=== PATIENT | male | born 1960 | race Caucasian/White ===

== ENCOUNTER 2017-03-03 15:51 | Emergency (ER) | payer MEDICARE, MEDICAID ==
[2017-03-03 17:23] VITALS: BP 157/66
--- NOTE | 2017-03-03 17:45 | UC ---
General HPI - HPI Summary HPI Summary: Here with caregiver from [facility] rash that started 2 nights ago Gtube opened and stomach contents spilled between his back and shirt rash is flat and has some drainage pt doesn't seem to be in pain rash was cleansed and cold compress -used A&D ointment on the rash rash today is raised and has some drainage staff reports no fever - History of Current Complaint Chief Complaint: UCRash Stated Complaint: RASH Time Seen by Provider: 03/03/17 17:10 Hx Obtained From: Patient, Family/Hris Coordinator - Allergy/Home Medications Allergies/Adverse Reactions: Allergies Allergy/AdvReac Type Severity Reaction Status Date / Time Diazepam [From Valium] Allergy Unknown Unknown Verified 12/13/15 09:55 Reaction Details Penicillins Allergy Unknown Unknown Verified 12/13/15 09:55 Reaction Details PMH/Surg Hx/FS Hx/Imm Hx Previously Healthy: Yes Respiratory History Of: Reports: Pneumonia - Surgical History Surgical History: Yes Surgery Procedure, Year, and Place: [employer] shunt- non- functioning presently, subdural hematomal, dental extraction, feeding tube - Family History Known Family History: Positive: Unknown - Social History Occupation: Disabled Lives: Assisted Living Alcohol Use: None Substance Use Type: None Smoking Status (MU): Never Smoked Tobacco - Immunization History Most Recent Influenza Vaccination: [id number] Review of Systems Constitutional: Negative Skin: Rash Eyes: Negative ENT: Negative Respiratory: Negative Cardiovascular: Negative Gastrointestinal: Negative Genitourinary: Negative Motor: Negative Neurovascular: Negative Musculoskeletal: Negative Neurological: Negative Psychological: Negative All Other Systems Reviewed And Are Negative: Yes Physical Exam Triage Information Reviewed: Yes Completion Of Physical Exam Limited Due To: Altered Mental Status - normal for patient Vital Signs: Initial Vital Signs Temp 97.1 F 03/03/17 17:14 Pulse 66 03/03/17 17:14 Resp 16 03/03/17 17:14 BP 157/66 03/03/17 17:14 Pulse Ox 96 03/03/17 17:14 Vital Signs Reviewed: Yes Eyes: Positive: Conjunctiva Clear ENT: Positive: Pharynx normal, TMs normal, Other: - large head Neck: Positive: No Lymphadenopathy Respiratory: Positive: Lungs clear, Normal breath sounds, No respiratory distress, No accessory muscle use Cardiovascular: Positive: RRR, No Murmur, Pulses Normal Abdomen Description: Positive: Nontender, Soft, Other: - g-tube in place Bowel Sounds: Positive: Present Musculoskeletal: Positive: Other: - hands are contracted BLE are in braces Neurological: Positive: Alert Psychological: Positive: Consolable Skin: Positive: Other - 4inches x 2.5 in Course/Dx - Course Course Of Treatment: exam completed. will treat for chemical burn with silvadene. no indication for oral antibiotics at this time - Differential Dx - Multi-Symptom Differential Diagnoses: Other - chemical burn Provider Diagnoses: chemical burn upper back, elevated blood pressure Discharge - Discharge Plan Condition: Stable Disposition: HOME Prescriptions: Silver Sulfadiazine 1%* [SILVadine 1%*] 1 applic TOPICAL BID #1 tube Patient Education Materials: Chemical Skin Burn (ED) Referrals: Delroy Scott MD [Primary Care Provider] - Additional Instructions: Please keep burn clean and dry apply silvadene and apply sterile dressing twice a day Increase fluids and rest Please review your discharge instructions. If your symptoms do not improve please call your primary care provider or return to urgent care. Your blood pressure is elevated. Please contact your primary care provider within 1 day -4 weeks for further evaluation
[2017-03-03] MEDS ORDERED: Silver Sulfadiazine 1%* 20 GM TOPICAL ONE ×2 (17:46→18:00)
== END 2017-03-03 18:25 | disposition home or self-care (01) ==
LOC: UCCORT 15:51
DX: T65.891A Toxic effect of other specified substances, accidental (unintentional), initial encounter (principal); T21.43XA Corrosion of unspecified degree of upper back, initial encounter; Y93.9 Activity, unspecified; Y99.9 Unspecified external cause status; R03.0 Elevated blood-pressure reading, without diagnosis of hypertension; Z93.1 Gastrostomy status; Z98.2 Presence of cerebrospinal fluid drainage device
CPT/HCPCS: 99212; A9270-GY; G0463

== ENCOUNTER 2018-01-16 17:25 | Emergency (ER) | payer MEDICARE, MEDICAID ==
[2018-01-16 18:23] VITALS: BP 148/80
--- NOTE | 2018-01-16 18:37 | UC ---
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 he has seemed comfortable and not grunting at all. recently had abx for aspiration pneumonia./ Kareem denies any noted cough. He is here w/ his . - History of Current Complaint Chief Complaint: UCGeneralIllness Stated Complaint: ORAL COMPLAINT Time Seen by Provider: 01/16/18 18:15 Pain Intensity: 0 - Allergies/Home Medications Allergies/Adverse Reactions: Allergies Allergy/AdvReac Type Severity Reaction Status Date / Time MS Diazepam [From Valium] Allergy Unknown Unknown Verified 12/13/15 09:55 Reaction Details MS Penicillins [Penicillins] Allergy Unknown Unknown Verified 12/13/15 09:55 Reaction Details Home Medications: Home Medications Esomeprazole(NF) [Nexium(NF)] 40 mg PO DAILY 01/16/18 [History Confirmed ] Lactobacillus Acidophilu (GG)* [Culturelle*] 1 cap PO BID 01/16/18 [History Confirmed 01/16/18] Lisinopril TAB* [Prinivil TAB 10 MG*] 10 mg PO DAILY 01/16/18 [History Confirmed 01/16/18] Metoprolol Tartrate TAB* [Lopressor TAB*] 50 mg PO BID 01/16/18 [History Confirmed 01/16/18] Tobramycin 0.3% OPHTH.KURTIS* 1 drop BOTH EYES EVERY OTHER DAY 01/16/18 [History Confirmed 01/16/18] PMH/Surg Hx/FS Hx/Imm Hx Previously Healthy: No - [employer] shunt- non- functioning presently, subdural hematomal, dental extraction - Surgical History Surgical History: Yes Surgery Procedure, Year, and Place: [employer] shunt- non- functioning presently, subdural hematomal, dental extraction, feeding tube - Family History Known Family History: Positive: Unknown - pt non-verbal - Social History Alcohol Use: None Substance Use Type: None Smoking Status (MU): Never Smoked Tobacco - Immunization History Most Recent Influenza Vaccination: [id number] Review of Systems Constitutional: Negative Skin: Negative Eyes: Negative ENT: Other - white ocating on tongue Respiratory: Negative Cardiovascular: Negative Gastrointestinal: Negative Genitourinary: Negative Motor: Negative Neurovascular: Negative Musculoskeletal: Negative Neurological: Negative Psychological: Negative Is Patient Immunocompromised?: No All Other Systems Reviewed And Are Negative: Yes Physical Exam Triage Information Reviewed: Yes Completion Of Physical Exam Limited Due To: Other - non-verbal. peaceful. alert Appearance: No Pain Distress Vital Signs: Initial Vital Signs Temp 96.1 F 01/16/18 18:18 Pulse 66 01/16/18 18:18 Resp 18 01/16/18 18:18 BP 148/80 01/16/18 18:18 Pulse Ox 98 01/16/18 18:18 Vital Signs Reviewed: Yes Eye Exam: Normal ENT: Positive: Other - tongue with white coating, no visble oral lesions Respiratory: Positive: Lungs clear, Normal breath sounds, No respiratory distress, No accessory muscle use Cardiovascular: Positive: RRR, No Murmur Dental Complaint Course/Dx - Differential Dx/Diagnosis Differential Diagnosis/Dx: Other - thrush Provider Diagnoses: oral thrush Discharge - Discharge Plan Condition: Stable Disposition: HOME Prescriptions: Nystatin SUSPENSION ORAL SYR* 100,000 units PO QID 14 Days #[facility] [place] Patient Education Materials: Oral Candidiasis (ED) Referrals: Delroy Scott MD [Primary Care Provider] - 5 Days Additional Instructions: Apply nystatin with oral swab.
== END 2018-01-16 19:04 | disposition home or self-care (01) ==
LOC: UCCORT 17:25
DX: B37.0 Candidal stomatitis (principal); Z88.0 Allergy status to penicillin; Z88.8 Allergy status to other drugs, medicaments and biological substances; Z98.2 Presence of cerebrospinal fluid drainage device
CPT/HCPCS: 99212; G0463

== ENCOUNTER 2019-12-17 09:11 | Emergency (ER) | payer MEDICARE, MEDICAID ==
--- OUTSIDE RECORDS SUMMARY | 2019-12-17 10:54 | XMS REPORT | Continuity of Care Document ---
:1960 External Reference #:[id number] Author Name Jerrell Lozada M.D. (transmitted by agent of provider Deidre Velázquez) Address [address] [place] [id number] Care Team Providers Name Role Phone Delroy Scott MD - Family Medicine Care Team Information Manager Development [phone] Irma Parks M.D. - Internal Care Team Information Manager Development Medicine Ryan Adams MD - Internal Care Team Information Manager Development [phone] Medicine Problems Active Problems Provider Date Benign essential hypertension Toya Grier ANP Onset: 09/11/2011 Pure hypercholesterolemia Toya Grier ANP Onset: 09/11/2011 Gallstone Davie Field MD Onset: 10/17/2011 Degenerative joint disease involving multiple Tremaine Oliveros MD Onset: 2015 joints Congenital dislocation of hip Tremaine Oliveros MD Onset: 12/16/2015 History of subdural hematoma Tremaine Oliveros MD Onset: 12/16/2015 Note: craniotomy -> epilepsy Hydrocephalus Tremaine Oliveros MD Onset: 12/16/2015 Note: G-tube replaced 2014 Adult health examination Tremaine Oliveros MD Onset: 12/16/2015 Note: colo to proximal transverse 2014 Kidney stone Tremaine Oliveros MD Onset: 12/16/2015 Paralytic ileus Tremaine Oliveros MD Onset: 12/16/2015 Anemia of chronic disease Tremaine Oliveros MD Onset: 12/19/2015 Note: Dec 2015 ferritin 208 Gastrostomy present Yimi Blanco MD,FACS Onset: 02/26/2017 Preoperative cardiovascular Merritt Ndiaye M.D., Onset: 02/26/2018 examination FAC Electrocardiogram abnormal Merritt Ndiaye M.D., Onset: 02/26/2018 [facility] Gastroesophageal reflux disease Kurt Akins MD Onset: 02/17/2018 Dysphagia Kurt Akins MD Onset: 02/17/2018 Complication of gastrostomy Jerrell Lozada, Onset: 07/09/2018 [facility] Ureteric stone Wade Campbell M.D. Onset: 02/11/2019 Urinary tract infectious disease Wade Campbell M.D. Onset: 06/15/2019 Social History Type Date Description Comments Sex Unknown Tobacco Use Start: Unknown Never Smoked Cigarettes Smokeless Tobacco Never Used Smokeless Tobacco ETOH Use Never used alcohol Tobacco Use Start: Unknown Patient denies history of smoking Recreational Drug Use Never Used Drugs Smoking Status Reviewed: 09/14/19 Patient denies history of smoking Allergies, Adverse Reactions, Alerts Active Allergies Reaction Severity Comments Date Penicillin 08/30/2011 Diazepam 08/30/2011 Medications Active Medications SIG Qnty Indications Ordering Date Provider Carafate take 3 times a day ( 420ml Jimmy Douglass, 08/20/2019 1GM/10ML Per Note, bid) Suspension Nexium mix 1 packet with 60units Jimmy Douglass, 08/04/2019 20mg Packet 30cc water let sit 2m & stir before administering via g-tube twice daily; flush g-tube with 120ml before administration Amlodipine Besylate take 2 by J tube 90tabs Zelda, 02/26/2018 5mg every day Namita Young M.D., [facility] Acyclovir for topical use as Gino Montanez, 01/28/2018 5% Ointment directed prn [facility] Water Flush 50 ml H2o flush with Unknown prn meds Water Flush 30 ml H2o flush whe Unknown TF stopped and restarted if it does not coincide with the water flush scheduled for every 4 hours Tramadol HCL 1 tablet via G-tube Unknown 50mg every 24 hours as Tablets needed pain Acidophilus Take one capsule via Unknown Capsules G-tube two times daily Ursodiol 1 capsule twice a Unknown 250mg Tablets day via g-tube Guaifenesin ac as directed Unknown 100-10mg/5ML Syrup Aloe [place] Protective Apply two times Unknown daily as needed for Ointment incontinence Hydrocortisone Apply to minor skin Unknown 1% Cream rash 3 times daily as needed until clear Centrum Liquid 5 ML Take 5 ML Via G-Tube Unknown Daily With Meals Cephalexin give 5 ml bid via g Unknown 250mg/5ML tube Suspension Rec Reglan Solution 5MG/5 take 5 ml via g tube Unknown ML 3 times a day before meals Tobradex instill 2 drops into Unknown 0.3-0.1% both eyes every Suspension other day Tramadol 50 MG Tablet Take 1 tablet via g Unknown tube every 4 hours as needed for pain Baby Oil instill 3 drops both Unknown Oil ears 3 times weekly Friday, Friday, & Friday Water Flush 100 ml H2o flush Unknown ac/pc meds Prostat 30 ml q day with Unknown 50ml H2o flush ac/pc meds Water Flush 120 ml water flush Unknown every 4hours via tube Jevity 1.2 El 78 ml q 12 hrs via Unknown Liquid tube Tobramycin 2 gtts both eyes qod Unknown 0.3% Solution Fleet Enema prn Unknown 7-19GM/118ML Enema Metoprolol Tartrate 1 v ia J tube bid Unknown for BP <90/60 50mg Tablets Bisacodyl insert 1 per rectum Unknown 10mg as needed for Suppository constipation. Albuterol Sulfate nebulized every 4 Unknown hours as needed (2.5mg/3ML) 0.083% Nebulizer Acetaminophen 2 tabs via J tube q Unknown 325mg 4 h prn Lisinopril take 2 tabs via J Unknown 10mg Tablets tube daily Polyethylene Glycol 1 tablespoon via J Unknown tube daily 527gm Multivitamin & plus iron via j-tube Unknown Mineral Liquid Phenobarbital 20 ml vis j tube Unknown 20mg/5 ML bid Immunizations CPT Code Status Date Vaccine Lot # [id number] Given Unknown Influenza Virus Split Children 6-35 Mo Of Age Intramuscular Use 38905 Refused 09/13/2014 flu vaccination Vital Signs Date Vital Result Comment 09/14/2019 9:24am BP Systolic Sitting Left Arm 135 mmHg BP Diastolic Sitting Left Arm 74 mmHg Body Temperature 99.8 F Heart Rate 89 /min Respiratory Rate 20 /min O2 % BldC Oximetry 92 % Ra 08/03/2019 2:30pm BP Systolic Sitting Right Arm 126 mmHg BP Diastolic Sitting Right Arm 72 mmHg Body Temperature 97.0 F Heart Rate 69 /min Respiratory Rate 16 /min Height 64 inches 5'4" Weight 141.00 lb BMI (Body Mass Index) 24.2 kg/m2 BSA (Body Surface Area) 1.69 m2 [place] body weight in kilograms 59 kg O2 % BldC Oximetry 94 % Ra Results Test Acquired Date Facility Test Result H/L Range Note Aot Request 08/09/2019 [facility] Aot Request Test(s) added 1, [address] [place] [address] [phone] Tests to be added: TnI 1 ACUTE RESP FAILURE 2 Tests: TnI Instructions: Procedures Date Code Description Status 08/10/2019 94365 Change gastrostomy tube; percutaneous, without imaging Completed guide 08/09/2019 42770 Echocardiogram Complete Completed 08/08/2019 66528 EKG Interpretation And Report Only Completed 08/07/2019 53870 EKG Interpretation And Report Only Completed 06/15/2019 13019 Measurement Post Voiding Residual Urine By Completed Ultrasound,Non-Imaging Medical Devices Description No Information Available Encounters Type Date Location Provider Dx Diagnosis Office Visit 09/14/2019 Jimmy Jeff MD Z43.1 Encounter for attention 9:10a to gastrostomy R05 Cough R12 Heartburn Office Visit 08/03/2019 2:20p Jimmy Jeff MD R05 Cough R12 Heartburn Z43.1 Encounter for attention to gastrostomy Office Visit 06/15/2019 10:30a Urology Wade Campbell, N39.0 Urinary tract M.DShukri infection, site not specified N13.2 Hydronephrosis with renal and ureteral calculous obstruction Assessments Date Code Description Provider 11/02/2019 J18.9 Pneumonia, unspecified organism Ghazala Torres M.D. 11/02/2019 K94.23 Gastrostomy malfunction Ghazala Torres M.D. 11/02/2019 R65.20 Severe sepsis without septic shock Ghazala Torres M.D. 11/02/2019 N39.0 Urinary tract infection, site not Ghazala Torres M.D. specified 11/01/2019 J18.9 Pneumonia, unspecified organism Ghazala Torres M.D. 11/01/2019 K94.23 Gastrostomy malfunction Ghazala Torres M.D. 11/01/2019 R65.20 Severe sepsis without septic shock Ghazala Torres M.D. 11/01/2019 N39.0 Urinary tract infection, site not Ghazala Torres M.D. specified 10/31/2019 J18.9 Pneumonia, unspecified organism Ghazala Torres M.D. 10/31/2019 K94.23 Gastrostomy malfunction Ghazala Torres M.D. 10/31/2019 R65.20 Severe sepsis without septic shock Ghazala Torres M.D. 10/31/2019 N39.0 Urinary tract infection, site not Ghazala Torres M.D. specified 10/29/2019 J18.9 Pneumonia, unspecified organism Víctor Cazares MD 10/29/2019 R50.9 Fever, unspecified Víctor Cazares MD 10/29/2019 R00.0 Tachycardia, unspecified Víctor Cazares MD 10/29/2019 R09.02 Hypoxemia Víctor Cazares MD 09/14/2019 Z43.1 Encounter for attention to gastrostomy Jimmy Douglass MD 09/14/2019 R05 Cough Jimmy Douglass MD 09/14/2019 R12 Heartburn Jimmy Douglass MD 08/16/2019 J69.0 Pneumonitis due to inhalation of food and Irma Parks M.D. vomit 08/16/2019 J96.01 Acute respiratory failure with hypoxia Irma Parks M.D. 08/16/2019 R00.1 Bradycardia, unspecified Irma Parks M.D. 08/16/2019 K92.0 Hematemesis Irma Parks M.D. 08/15/2019 J69.0 Pneumonitis due to inhalation of food and Ghazala Torres M.D. vomit 08/15/2019 J96.01 Acute respiratory failure with hypoxia Ghazala Torres M.D. 08/15/2019 R00.1 Bradycardia, unspecified Ghazala Torres M.D. 08/15/2019 K92.0 Hematemesis Ghazala Torres M.D. 08/14/2019 J69.0 Pneumonitis due to inhalation of food and Ghazala Torres M.D. vomit 08/14/2019 J96.01 Acute respiratory failure with hypoxia Ghazala Torres M.D. 08/14/2019 R00.1 Bradycardia, unspecified Ghazala Torres M.D. 08/14/2019 K92.0 Hematemesis Ghazala Torres M.D. 08/13/2019 J96.01 Acute respiratory failure with hypoxia Dariel Arias MD 08/13/2019 J69.0 Pneumonitis due to inhalation of food and Ankush Gill M.D. vomit 08/13/2019 J69.0 Pneumonitis due to inhalation of food and Dariel Arias MD vomit 08/13/2019 J96.01 Acute respiratory failure with hypoxia Ankush Gill M.D. 08/13/2019 K92.0 Hematemesis Dariel Arias MD 08/13/2019 F72 Severe intellectual disabilities Dariel Arias MD 08/13/2019 R00.1 Bradycardia, unspecified Ankush Gill M.D. 08/13/2019 K92.0 Hematemesis Ankush Gill M.D. 08/12/2019 J96.01 Acute respiratory failure with hypoxia Dariel Arias MD 08/12/2019 J69.0 Pneumonitis due to inhalation of food and Ghazala Torres M.D. vomit 08/12/2019 J69.0 Pneumonitis due to inhalation of food and Dariel Arias MD vomit 08/12/2019 J96.01 Acute respiratory failure with hypoxia Ghazala Torres M.D. 08/12/2019 K92.0 Hematemesis Dariel Arias MD 08/12/2019 F72 Severe intellectual disabilities Dariel Arias MD 08/12/2019 R00.1 Bradycardia, unspecified Ghazala Torres M.D. 08/12/2019 K92.0 Hematemesis Ghazala Torres M.D. 08/11/2019 J69.0 Pneumonitis due to inhalation of food and Ghazala Torres M.D. vomit 08/11/2019 J96.01 Acute respiratory failure with hypoxia Dariel Arias MD 08/11/2019 J69.0 Pneumonitis due to inhalation of food and Dariel Arias MD vomit 08/11/2019 J96.01 Acute respiratory failure with hypoxia Ghazala Torres M.D. 08/11/2019 K92.0 Hematemesis Dariel Arias MD 08/11/2019 F72 Severe intellectual disabilities Dariel Arias MD 08/11/2019 R00.1 Bradycardia, unspecified Ghazala Torres M.D. 08/11/2019 K92.0 Hematemesis Ghazala Torres M.D. 08/10/2019 K94.23 Gastrostomy malfunction Yimi Blanco MD,[facility] 08/10/2019 J69.0 Pneumonitis due to inhalation of food and Ghazala Torres M.D. vomit 08/10/2019 J96.01 Acute respiratory failure with hypoxia Ghazala Torres M.D. 08/10/2019 R11.10 Vomiting, unspecified Ghazala Torres M.D. 08/10/2019 R00.1 Bradycardia, unspecified Ghazala Torres M.D. 08/09/2019 J69.0 Pneumonitis due to inhalation of food and Ghazala Torres M.D. vomit 08/09/2019 R94.31 Abnormal electrocardiogram [ECG] [EKG] Salma Del Valle MD 08/09/2019 R00.1 Bradycardia, unspecified Salma Del Valle MD 08/09/2019 J96.01 Acute respiratory failure with hypoxia Ghazala Torres M.D. 08/09/2019 J96.01 Acute respiratory failure with hypoxia Salma Del Valle MD 08/09/2019 R11.10 Vomiting, unspecified Ghazala Torres M.D. 08/09/2019 F72 Severe intellectual disabilities aSlma Del Valle MD 08/09/2019 I34.1 Nonrheumatic mitral (valve) prolapse Salma Del Valle MD 08/09/2019 R00.1 Bradycardia, unspecified Ghazala Torres M.D. 08/08/2019 R94.31 Abnormal electrocardiogram [ECG] [EKG] Salma Del Valle MD 08/08/2019 J69.0 Pneumonitis due to inhalation of food and Ghazala Torres M.D. vomit 08/08/2019 J96.01 Acute respiratory failure with hypoxia Ghazala Torres M.D. 08/08/2019 R00.1 Bradycardia, unspecified Salma Del Valle MD 08/08/2019 R11.10 Vomiting, unspecified Ghazala Torres M.D. 08/08/2019 R00.1 Bradycardia, unspecified Ghazala Torres M.D. 08/07/2019 R94.31 Abnormal electrocardiogram [ECG] [EKG] Salma Del Valle MD 08/07/2019 J69.0 Pneumonitis due to inhalation of food and Irma Parks M.D. vomit 08/07/2019 R00.1 Bradycardia, unspecified Salma Del Valle MD 08/07/2019 J96.01 Acute respiratory failure with hypoxia Irma Parks M.D. 08/07/2019 R11.10 Vomiting, unspecified Irma Parks M.D. 08/07/2019 F72 Severe intellectual disabilities Irma Parks M.D. 08/06/2019 J69.0 Pneumonitis due to inhalation of food and Irma Parks M.D. vomit 08/06/2019 J96.01 Acute respiratory failure with hypoxia Irma Parks M.D. 08/06/2019 R11.10 Vomiting, unspecified Irma Parks M.D. 08/06/2019 F72 Severe intellectual disabilities Irma Parks M.D. 08/05/2019 J69.0 Pneumonitis due to inhalation of food and Víctor Cazares MD vomit 08/05/2019 J96.01 Acute respiratory failure with hypoxia Víctor Cazares MD 08/05/2019 R11.10 Vomiting, unspecified Víctor Cazares MD 08/05/2019 F72 Severe intellectual disabilities Víctor Cazares MD 08/03/2019 R05 Cough Jimmy Douglass MD 08/03/2019 R12 Heartburn Jimmy Douglass MD 08/03/2019 Z43.1 Encounter for attention to gastrostomy Jimmy Douglass MD 06/15/2019 N39.0 Urinary tract infection, site not Wade Campbell M.D. specified 06/15/2019 N13.2 Hydronephrosis with renal and ureteral Wade Campbell M.D. calculous obstruction Plan of Treatment Future Appointment(s):03/16/2020 9:30 am - Jimmy Douglass MD at [facility]06/15/2020 10 :15 am - Wade Campbell M.D. at [id number]/24/2019 - Jerrell Lozada M.D.Z93.1 Gastrostomy statusComments:Paperwork filed and administrative concerns addressed Functional Status Functional Condition Comment Date Status Dependent with all IADL's Active Manual wheelchair is used to ambulate Active Dependent with all ADL's Active Mental Status Description No Information Available Referrals Description No Information Available
--- OUTSIDE RECORDS SUMMARY | 2019-12-17 10:54 | XMS REPORT | Continuity of Care Document ---
:1960 External Reference #:[id number] Author Name Jerrell Nam M.D. 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 Onset: 2018 device Severe intellectual disability Jerrell Nam M.D. Onset: 02/25/2018 Muscle weakness Jerrell Nam M.D. Onset: 02/25/2018 Congenital hydrocephalus Jerrell Nam M.D. Onset: 02/25/2018 Social History Type Date Description Comments Sex Unknown ETOH Use Denies alcohol use Tobacco Use Start: Unknown Patient has never smoked Recreational Drug Use Denies Drug Use Smoking Status Reviewed: 10/20/19 Patient has never smoked Exercise Type/Frequency wheelchair bound Allergies, Adverse Reactions, Alerts Active Allergies Reaction Severity Comments Date Penicillin 12/18/2017 Valium 12/18/2017 Medications Active Medications SIG Qnty Indications Ordering Date Provider Sodium Bicarbonate 1 tab crushed Unknown mixed with water 0 325mg Tablets via G-Tube as needed Ibuprofen Crush one tab Unknown 600mg and give via 0 Tablets G-Tube four times a day as needed. Tramadol HCL 1- tablet via Unknown 50mg G-Tube every 4 0 Tablets hours as needed pain Triple Antibiotic to left elbow as Unknown needed 0 3.5-400-5000 Ointment Nexium 20MG Packet 1 packet with 30cc Unknown of water via 0 G-tube daily Jevity Tube Unknown Feeedings AT 78ML/HR 0 From 7411-8291 Then 0700-0Y Amlodipine Besylate 1 by via G-tube 90tabs Unknown every day 0 10mg Tablets Baby Oil three times a day Unknown Oil to both ears 0 weekly Hydrocortisone apply to affected Unknown 1% area three times 0 Cream a day as needed Bacitracin apply to affected Unknown (External) areas three times 0 500Unit/GM a day as needed Ointment Acyclovir apply small amount Unknown 5% Ointment to affected area 0 three times a day as needed Albuterol Sulfate 1 vial via Unknown nebulizer 6 times 0 (2.5mg/3ML) 0.083% daily as needed Nebulizer Tussin 10 ml via G-tube Unknown 100mg/5ML every 4 hrs as 0 Liquid needed for cough without fever Acetaminophen 2 tablets by via Unknown 325mg G-tube every 4 0 Tablets hours as needed for pain/fever Aloe [place] applly to affected Unknown Ointment area twice daily 0 as needed Miralax 2 Tabs in 240ml Unknown Powder of water via 0 G-tube as needed for No BM 2 days Centrum Silver 5 ml via G-tube Unknown daily 0 Liquid Atorvastatin Calcium 1 via G tube every Unknown day 0 10mg Tablets Acidophilus Extra take one /tablet Unknown Strength via G-Tube bid 0 Tablets Fleet Enema insert rectally Unknown if no BM from 0 7-19GM/118ML Enema suppoitory in 24 hours as needed for constipation Bisacodyl 1 pr every 3 days Unknown 10mg as needed 0 Suppository Tobramycin 2 drop in each eye Unknown 0.3% every other day 0 Solution Lisinopril 1 tablet via Unknown 10mg G-tube every day 0 Tablets Lopressor 1 via G-tube Unknown 50mg twice a day 0 Tablets Phenobarbital 20 ml via j-tube 1200units Christoph twice daily code c Cyril, M.D. 0 20mg/5ML Elixir Immunizations Description No Information Available Vital Signs Date Vital Result Comment 10/20/2019 11:12am Weight 157.00 lb 12/30/2018 2:08pm Heart Rate 70 /min BP Systolic Sitting 158 mmHg BP Diastolic Sitting 78 mmHg Respiratory Rate 12 /min grunting resps. No resp distress O2 % BldC Oximetry 94 % Results Description No Information Available Procedures Description No Information Available Medical Devices Description No Information Available Encounters Description No Information Available Assessments Date Code Description Provider 10/20/2019 Q03.9 Congenital hydrocephalus, unspecified Jerrell Nam M.D. 10/20/2019 M62.81 Muscle weakness (generalized) Jerrell Nam M.D. 10/20/2019 F72 Severe intellectual disabilities Jerrell Nam M.D. 10/20/2019 Z98.2 Presence of cerebrospinal fluid drainage Jerrell Nam M.D. device Plan of Treatment Future Appointment(s):04/26/2020 3:30 pm - Jerrell Nam M.D. at [facility]10/20/2019 - Jerrell Nam M.D.Q03.9 Congenital hydrocephalus, drwqcvjmrltA89.81 Muscle weakness (generalized)F72 Severe intellectual ujrmmeedfbryE17.2 Presence of cerebrospinal fluid drainage device Functional Status Description No Information Available Mental Status Description No Information Available Referrals Description No Information Available
--- OUTSIDE RECORDS SUMMARY | 2019-12-17 10:54 | XMS REPORT | Continuity of Care Document ---
:1960 External Reference #:[id number] Author Name Jerrell Lozada M.D. (transmitted by agent of provider Deidre Velázquez) Address [address] [place] [phone] Care Team Providers Name Role Phone Delroy Scott MD - Family Medicine Care Team Information Industrial Machine Operator [phone] Irma Parks M.D. - Internal Care Team Information Industrial Machine Operator Medicine Ryan Adams MD - Internal Care Team Information Industrial Machine Operator Medicine Problems Active Problems Provider Date Benign [...] Electrocardiogram abnormal Merritt Ndiaye M.D., Onset: 02/26/2018 [facility] Gastroesophageal reflux disease Kurt Akins MD Onset: [...] 02/26/2018 5mg every day Namita Young M.D., [facility] Acyclovir for topical use as Gino Montanez, [...] ac as directed Unknown 100-10mg/5ML Syrup Aloe [place] Protective Apply two times Unknown daily as [...] CPT Code Status Date Vaccine Lot # 30730 Given Unknown Influenza Virus Split Children 6-35 Mo Of Age Intramuscular Use 44976 Refused 09/13/2014 flu vaccination Vital Signs Date [...] kg/m2 BSA (Body Surface Area) 1.69 m2 [place] body weight in kilograms 59 kg O2 % BldC Oximetry 94 % Ra Results Test Acquired Date Facility Test Result H/L Range Note Aot Request 08/09/2019 [facility] Aot Request Test(s) added 1, 2 [address] [place] [address] [phone] Tests to be added: TnI 1 ACUTE RESP FAILURE 2 Tests: TnI Instructions: Procedures Date Code Description Status 08/10/2019 59903 Change gastrostomy tube; percutaneous, without imaging Completed guide 08/09/2019 42523 Echocardiogram Complete Completed 08/08/2019 29863 EKG Interpretation And Report Only Completed 08/07/2019 99138 EKG Interpretation And Report Only Completed 06/15/2019 20992 Measurement Post Voiding Residual Urine By Completed [...] M.D. 08/10/2019 K94.23 Gastrostomy malfunction Yimi Blanco MD,[facility] 08/10/2019 J69.0 Pneumonitis due to [...] Torres M.D. 08/09/2019 F72 Severe intellectual disabilities Salma Del Valle MD 08/09/2019 I34.1 Nonrheumatic mitral [...] of Treatment Future Appointment(s):03/16/2020 9:30 am - Jmimy Douglass MD at [facility]06/15/2020 10 :15 am - Wade Campbell M.D. at [facility]/05/2019 - Jimmy Douglass MDZ43.1 Encounter for attention to gastrostomyComments:PEG/PEJ functioning wellFollow up :Follow-up in 6 [id number] CoughComments:Coughing has improved after being on acid reducing [id number] HeartburnComments:Continue with Nexium 20 mg twice a day 30 minutes before for our feet and 30 minutes before 3 hour feedContinue with Carafate 10 mg twice a dayDiscontinue metoclopramide given side effects; she has been on it since dischargeAspiration precautions Functional Status Functional Condition Comment Date Status Dependent with all IADL's Active Manual wheelchair is used to ambulate Active Dependent with all ADL's Active Mental Status Description No Information Available Referrals Description No Information Available
--- OUTSIDE RECORDS SUMMARY | 2019-12-17 10:54 | XMS REPORT | Continuity of Care Document ---
:1960 External Reference #:[id number] Author Name Jerrell Lozada M.D. (transmitted by agent of provider Deidre Velázquez) Address [address] [place] [phone] Care Team Providers Name Role Phone Delroy Scott MD - Family Medicine Care Team Information Claims Configuration Analyst [phone] Irma Parks M.D. - Internal Care Team Information Claims Configuration Analyst [phone] Medicine Ryan Adams MD - Internal Care Team Information Claims Configuration Analyst [phone] Medicine Problems Active Problems Provider Date Benign [...] Electrocardiogram abnormal Merritt Ndiaye M.D., Onset: 02/26/2018 [facility] Gastroesophageal reflux disease Kurt Akins MD Onset: [...] 02/26/2018 5mg every day Namita Young M.D., [facility] Acyclovir for topical use as Gino Montanez, [...] ac as directed Unknown 100-10mg/5ML Syrup Aloe [place] Protective Apply two times Unknown daily as [...] Unknown every 4hours via tube Jevity 1.2 Le 78 ml q 12 hrs via Unknown [...] CPT Code Status Date Vaccine Lot # [id number] Given Unknown Influenza Virus Split Children 6-35 Mo Of Age Intramuscular Use 79377 Refused 09/13/2014 flu vaccination Vital Signs Date [...] kg/m2 BSA (Body Surface Area) 1.69 m2 [place] body weight in kilograms 59 kg O2 % BldC Oximetry 94 % Ra Results Test Acquired Date Facility Test Result H/L Range Note Aot Request 08/09/2019 [facility] Aot Request Test(s) added 1, 2 [address] [place] [address] [phone] Tests to be added: TnI 1 ACUTE RESP FAILURE 2 Tests: TnI Instructions: Procedures Date Code Description Status 08/10/2019 60945 Change gastrostomy tube; percutaneous, without imaging Completed guide 08/09/2019 77776 Echocardiogram Complete Completed 08/08/2019 95862 EKG Interpretation And Report Only Completed 08/07/2019 62329 EKG Interpretation And Report Only Completed 06/15/2019 32015 Measurement Post Voiding Residual Urine By Completed [...] M.D. 08/10/2019 K94.23 Gastrostomy malfunction Yimi Blanco MD,[facility] 08/10/2019 J69.0 Pneumonitis due to inhalation of [...] :15 am - Wade Campbell M.D. at [facility]/24/2019 - Jerrell Lozada M.D.Z93.1 Gastrostomy statusComments:Paperwork filed and administrative concerns addressed Functional Status Functional Condition Comment Date Status Dependent with all IADL's Active Manual wheelchair is used to ambulate Active Dependent with all ADL's Active Mental Status Description No Information Available Referrals Description No Information Available
--- OUTSIDE RECORDS SUMMARY | 2019-12-17 10:54 | XMS REPORT | Continuity of Care Document ---
:1960 External Reference #:[id number] Author Name Jerrell Lozada M.D. (transmitted by agent of provider Deidre Velázquez) Address [address] [place] [phone] Care Team Providers Name Role Phone Delroy Scott MD - Family Medicine Care Team Information Deicer Element Winder Machine [phone] Irma Parks M.D. - Internal Care Team Information Deicer Element Winder Machine Medicine Ryan Adams MD - Internal Care Team Information Deicer Element Winder Machine [phone] Medicine Problems Active Problems Provider Date Benign [...] Electrocardiogram abnormal Merritt Ndiaye M.D., Onset: 02/26/2018 [facility] Gastroesophageal reflux disease Kurt Akins MD [...] 02/26/2018 5mg every day Namita Young M.D., [facility] Acyclovir for topical use as Gino [...] ac as directed Unknown 100-10mg/5ML Syrup Aloe [place] Protective Apply two times Unknown daily as [...] CPT Code Status Date Vaccine Lot # 97519 Given Unknown Influenza Virus Split Children 6-35 Mo Of Age Intramuscular Use 07722 Refused 09/13/2014 flu vaccination Vital Signs Date [...] kg/m2 BSA (Body Surface Area) 1.69 m2 [place] body weight in kilograms 59 kg O2 % BldC Oximetry 94 % Ra Results Test Acquired Date Facility Test Result H/L Range Note Aot Request 08/09/2019 [facility] Aot Request Test(s) added 1, 2 [address] [place] [address] [phone] Tests to be added: TnI 1 ACUTE RESP FAILURE 2 Tests: TnI Instructions: Procedures Date Code Description Status 08/10/2019 21243 Change gastrostomy tube; percutaneous, without imaging Completed guide 08/09/2019 12718 Echocardiogram Complete Completed 08/08/2019 89660 EKG Interpretation And Report Only Completed 08/07/2019 46205 EKG Interpretation And Report Only Completed 06/15/2019 33832 Measurement Post Voiding Residual Urine By Completed [...] M.D. 08/10/2019 K94.23 Gastrostomy malfunction [facility] 08/10/2019 J69.0 Pneumonitis due to inhalation [...] :15 am - Wade Campbell M.D. at [facility]/24/2019 - Jerrell Lozada M.D.Z93.1 Gastrostomy statusComments:Paperwork filed and administrative concerns addressed Functional Status Functional Condition Comment Date Status Dependent with all IADL's Active Manual wheelchair is used to ambulate Active Dependent with all ADL's Active Mental Status Description No Information Available Referrals Description No Information Available
[2019-12-17 11:03] VITALS: BP 140/64
--- NOTE | 2019-12-17 11:40 | UC ---
Eye Complaint HPI - HPI Summary HPI Summary: 59 yo disabled long-term resident here for evaluation of bilateral eye discharge. No other concerns, no cough, fever. - History of Current Complaint Chief Complaint: UCEye Stated Complaint: EYE CONCERN Time Seen by Provider: 12/17/19 11:32 Hx Obtained From: Patient Hx From Patient Unobtainable Due To: Altered Mental Status - severe cognitive impairment. Onset/Duration: Sudden Onset, Lasting Days - 1 Timing: Constant Severity Initially: Mild Severity Currently: Mild Pain Intensity: 0 Location of Injury: Conjunctiva Aggravating Factor(s): Nothing Alleviating Factor(s): Nothing Associated Signs And Symptoms: Positive: Drainage (Purulent) - Risk Factors Penetrating Injury Risk Factor: Negative Globe Rupture Risk Factors: Negative Acute Glaucoma Risk Factors: Negative Optic Artery Occlusion Risk Factors: Negative - Allergies/Home Medications Allergies/Adverse Reactions: Allergies Allergy/AdvReac Type Severity Reaction Status Date / Time diazepam Allergy Unknown Verified 12/17/19 11:03 Reaction Details Penicillins Allergy Unknown Verified 12/17/19 11:03 Reaction Details Home Medications: Home Medications Acetaminophen TAB* [Tylenol TAB*] 2 tab Q4HR PRN 12/17/19 [History Confirmed 05/29] Albuterol 2.5MG/3ML (0.083%)* [Ventolin 2.5 MG/3 ML NEB.KURTIS*] 1 inh Q4HR PRN 05/29 [History Confirmed 12/17/19] Esomeprazole Magnesium [Nexium 24Hr] 20 mg DAILY 12/17/19 [History Confirmed 05/29] Lactobacillus Acidophilus [Acidophilus] 1 cap DAILY 12/17/19 [History Confirmed 12/17/19] Lactose-Reduced Food/Fiber [Jevity 1 El Liquid] 78 ml G TUBE Q6HR 12/17/19 [ History Confirmed 12/17/19] Lisinopril TAB* [Prinivil TAB*] 20 mg PO DAILY 12/17/19 [History Confirmed 12/17] Multivitamin/Iron/Folic Acid [Centrum Adults Tablet] 1 liq DAILY 12/17/19 [ History Confirmed 12/17/19] Polyethylene Glycol 3350 BTL* [Miralax (FULL BULK BOTTLE)] 1 liq DAILY 12/17/19 [History Confirmed 12/17/19] Sucralfate SUSP (NF) [Carafate SUSP (NF)] 10 ml PO BID 12/17/19 [History Confirmed 12/17/19] Ursodiol CAP* [Actigall CAP 300 MG*] 250 mg BID 12/17/19 [History Confirmed 05/29] amLODIPine TAB* [Norvasc 5 mg TAB*] 10 mg PO DAILY 12/17/19 [History Confirmed 12/17/19] traMADol TAB* [Ultram*] 50 mg PO Q6HR PRN 12/17/19 [History Confirmed 12/17/19] PMH/Surg Hx/FS Hx/Imm Hx Previously Healthy: No - severe cognitive impairment, seizures GI/ History: Gastroesophageal Reflux - Surgical History Surgical History: Yes Surgery Procedure, Year, and Place: EGG BREAKER shunt- non- functioning presently, subdural hematomal, dental extraction, feeding tube - Family History Known Family History: Positive: Unknown - pt non-verbal - Social History Occupation: Disabled Lives: Skilled Nursing Alcohol Use: None Substance Use Type: None Smoking Status (MU): Never Smoked Tobacco - Immunization History Most Recent Influenza Vaccination: 7552-3360 Review of Systems All Other Systems Reviewed And Are Negative: Yes Constitutional: Positive: Negative Skin: Positive: Negative Eyes: Positive: Drainage, Eye Redness ENT: Positive: Negative Respiratory: Positive: Negative Cardiovascular: Positive: Negative Gastrointestinal: Positive: Negative Genitourinary: Positive: Negative Motor: Positive: Negative Neurovascular: Positive: Negative Musculoskeletal: Positive: Negative Neurological: Positive: Negative Psychological: Positive: Negative Is Patient Immunocompromised?: No Physical Exam Triage Information Reviewed: Yes Appearance: Obese, Other: - Averbal, reclining in wheelchair. Vital Signs: Initial Vital Signs Temp 98.2 F 12/17/19 10:57 Pulse 83 12/17/19 10:57 Resp 18 12/17/19 10:57 BP 140/64 12/17/19 10:57 Pulse Ox 97 12/17/19 10:57 Eyes: Positive: Conjunctiva Inflamed, Discharge - light yellow discharge Respiratory: Positive: Lungs clear, Normal breath sounds Cardiovascular: Positive: RRR, No Murmur Neurological Exam: Other - no verbal response, no eye contact. Skin Exam: Normal Eye Complaint Course/Dx - Course Course Of Treatment: erythromycin ointment for bilateral conjuctivitis - Differential Dx/Diagnosis Differential Diagnosis/HQI/PQRI: Conjunctivitis Provider Diagnosis: Conjunctivitis Discharge ED - Sign-Out/Discharge Documenting (check all that apply): Patient Departure All imaging exams completed and their final reports reviewed: No Studies - Discharge Plan Condition: Stable Disposition: HOME Patient Education Materials: Conjunctivitis (ED) Referrals: Delroy Scott MD [Primary Care Provider] - Additional Instructions: Wipe away eye discharge with a clean cotton ball or cloth, and apply eye ointment to the upper lid three times daily for 5 days. Follow up if eye drainage persists. - Billing Disposition and Condition Condition: STABLE Disposition: Home
[2019-12-17] MEDS ORDERED: Erythromycin OPTH OINT* APPLIC OINT BOTH EYES ONE (11:48)
== END 2019-12-17 12:19 | disposition home or self-care (01) ==
LOC: UCCORT 09:11
DX: H10.9 Unspecified conjunctivitis (principal); K21.9 Gastro-esophageal reflux disease without esophagitis; Z88.8 Allergy status to other drugs, medicaments and biological substances; Z88.0 Allergy status to penicillin; Z79.899 Other long term (current) drug therapy
CPT/HCPCS: 99212; A9270-GY; G0463